=== PATIENT | male | born 1935 ===

== ENCOUNTER 2021-09-23 00:15 | Inpatient (IN) ==
[2021-09-23] MEDS ORDERED: Naloxone 0.4 MG/ML INJ IVP PRN (09:47)
[2021-09-23 10:41] LABS: INR 1.1; Prothrombin Time 12.5 Seconds (9.4-12.1)
[2021-09-23 10:47] LABS: Basophils % 0.2 %; Eosinophils % 0.2 %; Hematocrit 37.6 % (37.5-50.1); Hemoglobin 12.2 g/dL (12.9-16.9); Immature Granulocytes % 1.2 % (0-4); Lymphocytes # 0.9 K/mcL (0.6-4.6); Lymphocytes % 18.4 %; Mean Corpuscular HGB Conc 32.4 g/dL (31.6-35.5); Mean Corpuscular Hemoglobin 30.8 pg (28.0-33.3); Mean Corpuscular Volume 94.9 fL (83.0-100.0); Mean Platelet Volume 12.1 fL (9.4-12.4); Monocytes # 0.5 K/mcL (0.0-1.3); Monocytes % 10.2 %; Neutrophils # 3.5 K/mcL (1.6-8.9); Platelet Count 156 K/mcL (140-400); Red Blood Count 3.96 M/mcL (4.19-5.50); Red Cell Distribution Width 15.2 % (11.5-14.5); Segmented Neutrophils % 69.8 %
[2021-09-23 10:54] LABS: Alanine Aminotransferase 12 Units/L (7-52); Albumin 3.8 g/dL (3.5-5.7); Albumin/Globulin Ratio 1.8 (1.1-2.2); Alkaline Phosphatase 75 Units/L (34-104); Aspartate Amino Transferase 22 Units/L (13-39); BUN/Creatinine Ratio 27 (6-26); Bilirubin,Total 0.8 mg/dL (0.3-1.0); Blood Urea Nitrogen 19 mg/dL (8-23); Calcium 9.2 mg/dL (8.6-10.3); Carbon Dioxide 26 mEq/L (23-29); Chloride 104 mEq/L (98-107); Cholesterol 145 mg/dL (< 200); Globulin 2.1 g/dL (2.4-3.5); Glucose 127 mg/dL (70-105); HDL Cholesterol 36 mg/dL (40-59); LDL Cholesterol,Calculated 84 mg/dL (< 100); Magnesium 1.5 mg/dL (1.6-2.6); Osmolality,Calculated 292 (280-300); Phosphorous 3.4 mg/dL (2.7-4.5); Potassium 3.6 mEq/L (3.5-5.1); Sodium 139 mEq/L (136-145); Total Protein 5.9 g/dL (6.4-8.9); Triglycerides 125 mg/dL (< 150); eGFR For African Americans > 60 (> 60); eGFR For Non-African Americans > 60 (> 60)
[2021-09-23 11:34] LABS: Estimated Average Glucose 171 mg/dl; Hemoglobin A1C 7.6 %
[2021-09-23] MEDS ORDERED: *HR* Dextrose 50 % in Water (Syg) 50 ML SYRINGE IVP PRN (13:36)
[2021-09-23] MEDS ORDERED: D5% in Water 1,000 ML IVC PRN (13:36)
[2021-09-23] MEDS ORDERED: Dextrose Gel 15 GM/37.5 ML TUBE PO PRN ×2 (13:36)
[2021-09-23] MEDS ORDERED: Isovue-370 500 ML BOTTLE IVP ONE (13:45)
[2021-09-23] MEDS ORDERED: Perflutren Lipid Microsphere 1.3 ML in 0.9 % Sodium Chloride 8.7 ML IVP PRN (13:45)
[2021-09-23] MEDS ORDERED: *HR* LORazepam 2 MG/ML VIAL IVP ONE (14:36)
[2021-09-23] MEDS: Insulin LISPRO 300 UNITS/3 ML VIAL SUBQ SCH ×2 (16:16→19:44)
[2021-09-23] MEDS: *HR* Heparin 5,000 UNIT/ML VIAL SQ SCH (17:51)
[2021-09-23] MEDS ORDERED: diazePAM 10 MG/2 ML SYRINGE IVP ONE (21:02)
[2021-09-24] MEDS: *HR* Heparin 5,000 UNIT/ML VIAL SQ SCH ×2 (05:22→17:16)
[2021-09-24] MEDS: Insulin LISPRO 300 UNITS/3 ML VIAL SUBQ SCH ×4 (08:19→20:21)
[2021-09-24] MEDS: Aspirin 81 MG TAB.CHEW PO SCH (08:27)
[2021-09-24 12:48] LABS: Bilirubin,Urine Negative (Negative); Blood,Urine Negative (Negative); Clarity,Urine Clear (Clear); Color,Urine Light-Yellow (Yellow); Glucose,Urine (UA) 30 mg/dL (Normal); Ketones,Urine Trace mg/dL (Negative); Leukocyte Esterase,Urine Negative (Negative); Mucus,Urine Few per lpf (None-Few); Nitrite,Urine Negative (Negative); Protein,Urine 30 mg/dL (Neg-Trace); RBC,Urine 0-3 per hpf (0-3); Specific Gravity,Urine 1.029 (1.010-1.025); Urobilinogen,Urine Normal (Normal); WBC,Urine 0-3 per hpf (0-3)
[2021-09-24 12:49] LABS: BUN/Creatinine Ratio 26 (6-26); Blood Urea Nitrogen 20 mg/dL (8-23); Calcium 8.9 mg/dL (8.6-10.3); Carbon Dioxide 20 mEq/L (23-29); Chloride 104 mEq/L (98-107); Glucose 98 mg/dL (70-105); Osmolality,Calculated 289 (280-300); Potassium 4.4 mEq/L (3.5-5.1); Sodium 138 mEq/L (136-145); eGFR For African Americans > 60 (> 60); eGFR For Non-African Americans > 60 (> 60)
[2021-09-25] MEDS: traZODone 50 MG TABLET PO PRN (00:31)
[2021-09-25] MEDS ORDERED: Haloperidol Lactate 5 MG/ML VIAL IM ONE (01:58)
[2021-09-25] MEDS: *HR* Heparin 5,000 UNIT/ML VIAL SQ SCH ×2 (05:19→16:50)
[2021-09-25] MEDS: Insulin LISPRO 300 UNITS/3 ML VIAL SUBQ SCH ×4 (07:36→19:30)
[2021-09-25] MEDS: Aspirin 81 MG TAB.CHEW PO SCH (07:42)
[2021-09-25] MEDS: carvediloL 25 MG TABLET PO SCH ×2 (11:17→19:38)
[2021-09-25] MEDS: Furosemide 40 MG TABLET PO SCH (11:17)
[2021-09-25] MEDS: lisinopriL 20 MG TABLET PO SCH (11:17)
[2021-09-25] MEDS: QUEtiapine Fumarate 25 MG TABLET PO PRN (19:36)
[2021-09-26] MEDS: *HR* Heparin 5,000 UNIT/ML VIAL SQ SCH ×2 (05:28→17:04)
[2021-09-26] MEDS: Insulin LISPRO 300 UNITS/3 ML VIAL SUBQ SCH ×4 (07:53→19:22)
[2021-09-26] MEDS: lisinopriL 20 MG TABLET PO SCH (08:35)
[2021-09-26] MEDS: Furosemide 40 MG TABLET PO SCH (08:36)
[2021-09-26] MEDS: carvediloL 25 MG TABLET PO SCH ×2 (08:36→17:04)
[2021-09-26] MEDS: Aspirin 81 MG TAB.CHEW PO SCH (08:36)
[2021-09-26] MEDS: QUEtiapine Fumarate 25 MG TABLET PO PRN (20:06)
[2021-09-27] MEDS: *HR* Heparin 5,000 UNIT/ML VIAL SQ SCH ×2 (05:47→17:23)
[2021-09-27] MEDS: Insulin LISPRO 300 UNITS/3 ML VIAL SUBQ SCH ×4 (08:05→20:21)
[2021-09-27] MEDS: lisinopriL 20 MG TABLET PO SCH (08:12)
[2021-09-27] MEDS: Aspirin 81 MG TAB.CHEW PO SCH (08:13)
[2021-09-27] MEDS: carvediloL 25 MG TABLET PO SCH ×2 (08:13→17:23)
[2021-09-27] MEDS: Furosemide 40 MG TABLET PO SCH (08:13)
[2021-09-27] MEDS: QUEtiapine Fumarate 25 MG TABLET PO PRN (20:24)
[2021-09-28] MEDS: *HR* Heparin 5,000 UNIT/ML VIAL SQ SCH ×2 (00:42→16:45)
[2021-09-28] MEDS: Insulin LISPRO 300 UNITS/3 ML VIAL SUBQ SCH ×4 (07:37→19:46)
[2021-09-28] MEDS: Aspirin 81 MG TAB.CHEW PO SCH (08:00)
[2021-09-28] MEDS: lisinopriL 20 MG TABLET PO SCH (08:00)
[2021-09-28] MEDS: Furosemide 40 MG TABLET PO SCH (08:00)
[2021-09-28] MEDS: carvediloL 25 MG TABLET PO SCH ×2 (08:00→16:45)
[2021-09-29] MEDS: *HR* Heparin 5,000 UNIT/ML VIAL SQ SCH ×2 (05:23→17:14)
[2021-09-29] MEDS: Insulin LISPRO 300 UNITS/3 ML VIAL SUBQ SCH ×4 (08:53→20:53)
[2021-09-29] MEDS: carvediloL 25 MG TABLET PO SCH ×2 (10:04→17:16)
[2021-09-29] MEDS: Aspirin 81 MG TAB.CHEW PO SCH (10:04)
[2021-09-29] MEDS: lisinopriL 20 MG TABLET PO SCH (10:04)
[2021-09-29] MEDS: Furosemide 40 MG TABLET PO SCH (10:04)
[2021-09-29] MEDS: traZODone 50 MG TABLET PO PRN (20:52)
[2021-09-29] MEDS: QUEtiapine Fumarate 25 MG TABLET PO PRN (20:52)
[2021-09-30] MEDS: *HR* Heparin 5,000 UNIT/ML VIAL SQ SCH (04:40)
[2021-09-30] MEDS: Insulin LISPRO 300 UNITS/3 ML VIAL SUBQ SCH (07:15)
[2021-09-30 07:36] VITALS: BP 162/74; PULSE 59; TEMP 97.4; O2SAT 95
[2021-09-30] MEDS: carvediloL 25 MG TABLET PO SCH (08:47)
[2021-09-30] MEDS: Furosemide 40 MG TABLET PO SCH (08:47)
[2021-09-30] MEDS: lisinopriL 20 MG TABLET PO SCH (08:47)
[2021-09-30] MEDS: Aspirin 81 MG TAB.CHEW PO SCH (08:47)
[2021-09-30 10:01] LABS: Influenza A PCR Negative (Negative); Influenza B PCR Negative (Negative); Resp. Syncytial Virus PCR Negative (Negative)
[2021-09-30 10:06] LABS: SARS-CoV-2 by PCR (In House) Negative (Negative)
== END 2021-09-30 10:42 | DRG 69 ==
LOC: 3BNU → SUATTDRO 09:07
PROVIDERS: ADMIT Student in an Organized Health Care Education/Training Program; ATTEND Internal Medicine